=== PATIENT | female | born 1960 | race Caucasian/White ===

== ENCOUNTER → 2020-09-19 09:47 | Outpatient (BNVA) | payer BC, SELFPAY | PROVIDERS: PCP Family Medicine; Visit Provider Internal Medicine Rheumatology | DX: M05.79 Rheumatoid arthritis with rheumatoid factor of multiple sites without organ or systems involvement (principal); G62.9 Polyneuropathy, unspecified; Z79.899 Other long term (current) drug therapy; R74.8 Abnormal levels of other serum enzymes; R74.01 Elevation of levels of liver transaminase levels | CPT/HCPCS: 99204 ==

== ENCOUNTER 2020-09-19 11:47 | Outpatient (CLI) | payer BC, SELFPAY ==
--- NOTE | 2020-09-19 11:58 | XR_ITS ---
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 Minimal degenerative changes in the IP joints. Degenerative changes at the risks noted. No sign of the cortical erosion or periarticular demineralization of bone. No so ft tissue foreign bodies. XR/XR hand LT min 3V* [id number] IMPRESSION: 1. Minimal degenerative changes. No fracture or other significant finding.
--- NOTE | 2020-09-19 11:58 | XR_ITS ---
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 There may be an old fracture at the base of the proximal phalanx of the fourth toe. Minimal degenerative changes in the IP joints. No soft tissue foreign bodies. XR/XR foot RT min 3V* [id number] IMPRESSION: 1. Minimal DJD. No acute fracture or other significant finding
--- NOTE | 2020-09-19 11:58 | XR_ITS ---
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 Costophrenic angles are sharp. No infiltrates. Bronchovascula r relief appears normal. Cardiac silhouette is unremarkable. Bony elements are intact. XR/XR chest 2V* [id number] IMPRESSION: Unremarkable chest radiograph.
--- NOTE | 2020-09-19 11:58 | XR_ITS ---
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 The joint structures are relatively well maintained. No soft tissue foreign bodies are seen. There are degenerative changes at the wrist. No cortical erosion or periart icular demineralization of bone. XR/XR hand RT min 3V* [id number] IMPRESSION: 1. No fracture or dislocation. 2. Degenerative changes at the wrist.
--- NOTE | 2020-09-19 11:58 | XR_ITS ---
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 No cortical erosion or demineralization of bone. No soft tissue foreign b odies are seen. Prominent plantar heel spur. XR/XR foot LT min 3V* [id number] IMPRESSION: 1. Prominent heel spur. No fracture or other significant finding.
[2020-09-19 13:12] LABS: Alanine Aminotransferase 76 U/L (0-33); Albumin Level 4.2 g/dL (3.5-5.2); Alkaline Phosphatase 137 IU/L (35-105); Aspartate Amino Transferase 86 U/L (0-32); Globulin 2.6 g/dL (1.3-4.6); Total Bilirubin 0.3 mg/dL (0.15-1.2); Total Protein 6.8 g/dL (6.6-8.7)
[2020-09-21 15:17] LABS: Quantiferon Mitogen 8.02 IU/mL; Quantiferon Nil 0.02 IU/mL; Quantiferon TB Gold NEGATIVE (NEGATIVE)
== END 2020-09-19 11:48 | disposition home or self-care (01) ==
PROVIDERS: PCP Family Medicine; Visit Provider Internal Medicine Rheumatology
DX: M19.90 Unspecified osteoarthritis, unspecified site (principal); Z79.899 Other long term (current) drug therapy; Z11.1 Encounter for screening for respiratory tuberculosis
CPT/HCPCS: 71046; 73130; 73630; 80076; 86480